=== PATIENT | male | born 1965 | race Caucasian/White ===

== ENCOUNTER 2021-02-21 17:10 | Emergency (ER) | payer BC, SELFPAY ==
[2021-02-21 17:21] VITALS: BP 149/105; PULSE 84; RESP 16; TEMP 36.6; O2SAT 99
--- NOTE | 2021-02-21 17:21 | ED.SKABFB ---
HPI - Skin/Abscess/Foreign Bdy General Chief complaint: Skin/Abscess/Foreign Body Stated complaint: pos tick bite Time Seen by Provider: 02/21/21 17:22 Source: patient and RN notes reviewed Mode of arrival: ambulatory Limitations: no limitations History of Present Illness HPI narrative: 55-year-old male presents concern for tick bite. He reports on Monday he removed a brownish colored tick from the back of his right leg. He reports since then he has noticed a circular rash with a darker red center. He denies any drainage from the area. Reports he removed all the tick as far as he can tell. He denies any general malaise, fever, body aches. Denies any other rash. MD complaint: insect bite/sting Related Data Home Medications Medication Instructions Recorded Confirmed atorvastatin 02/21/21 Allergies Allergy/AdvReac Type Severity Reaction Status Date / Time No Known Allergies Allergy Unverified 11/13/15 10:01 Review of Systems Review of Systems: Narrative: CONSTITUTIONAL: Denies malaise, chills, sweats, or fever. EYES: Denies visual changes, redness, or discharge. ENT: Denies rhinorrhea, congestion, sinus pain, otalgia or sore throat. CARDIOVASCULAR: Denies chest pain, palpitations, or edema. RESPIRATORY: Denies cough or dyspnea. GASTROINTESTINAL: Denies abdominal pain, nausea, vomiting, diarrhea SKIN: Reports red rash on the back of his right leg MUSCULOSKELETAL: Denies back pain, joint pain, or myalgia. NEUROLOGIC: Denies numbness, weakness, or headache. All systems reviewed & are unremarkable except as noted in HPI and below PMFSH Comments At time of signature, agree with nursing past medical, surgical, social and family history. There is no relevant family history pertinent to the presenting complaint Exam Narrative: Exam Narrative: GENERAL: Well-appearing, well-nourished, and in no acute distress. HEAD: Normocephalic, atraumatic. EYES: PERRLA, conjunctivae clear, and EOMI. ENT: Mucous membranes moist. Oropharynx without edema, erythema or lesions. NECK: Supple. No lymphadenopathy CHEST: Clear to auscultation. No respiratory distress. HEART: Regular rate and rhythm. SKIN: Warm, dry. Erythematous bull's-eye rash noted to the posterior right lower leg approximately 1.5 cm in diameter NEURO: Alert and oriented x3. PSYCH: Normal mood and affect Course Course Emergency Course: Patient is aware of diagnosis, understands and agrees to treatment plan. Anticipatory guidance given. Patient agrees to follow-up as directed and is aware of reasons to seek care at the emergency department. Portions of this record may have been created with voice recognition software Vital Signs Vital signs: Vital Signs Temperature 97.9 F 02/21/21 17:21 Pulse Rate 84 02/21/21 17:21 Respiratory Rate 16 02/21/21 17:21 Blood Pressure 149/105 H 02/21/21 17:21 Pulse Oximetry 99 02/21/21 17:21 Temperature 97.9 F 02/21/21 17:21 Pulse Rate 84 02/21/21 17:21 Respiratory Rate 16 02/21/21 17:21 Blood Pressure 149/105 H 02/21/21 17:21 Pulse Oximetry 99 02/21/21 17:21 Reviewed. MDM - Skin/Abscess/Foreign Bdy MDM Narrative Medical decision making narrative: Exam findings show no acute concerns or changes; patient is non-toxic appearing and is in no distress. Patient is appropriate for outpatient treatment and follow-up. Differential Diagnosis Differential diagnosis: Likely abscess of skin or subcutaneous tissue, cellulitis, insect bites and other (Lyme disease, recommend spotted fever) Critical Care Time Critical Care Time Critical Care Time: No Discharge Plan Discharge Clinical Impression: Tick bite Qualifiers: Encounter type: initial encounter Qualified Code(s): W57.XXXA - Bitten or stung by nonvenomous insect and other nonvenomous arthropods, initial encounter Patient Disposition: Home, Self-Care Condition: Stable Instructions: Antibiotic Form, Tick Bite (ED) Additional Instruction
== END 2021-02-21 17:35 | disposition home or self-care (01) ==
PROVIDERS: Emergency Provider Nurse Practitioner; PCP Internal Medicine
DX: S80.861A Insect bite (nonvenomous), right lower leg, initial encounter (principal); W57.XXXA Bitten or stung by nonvenomous insect and other nonvenomous arthropods, initial encounter; E78.00 Pure hypercholesterolemia, unspecified
CPT/HCPCS: 99213; G0463

== ENCOUNTER 2021-04-23 02:29 | Day surgery (SDC) | payer BC, SELFPAY ==
[2021-04-19 12:56] VITALS: BMI 24.3
[2021-04-23 06:53] VITALS: BP 126/83; PULSE 81; RESP 16; TEMP 35.6; O2SAT 98; BMI 21.2
--- NOTE | 2021-04-23 07:11 | PM.HPGS ---
History of Present Illness History of Present Illness Consent: Risks, benefits, and alternatives have been discussed and questions answered. Patient agrees to proceed with procedure. Chief complaint: family hx of colon polyps, neoplasm screening Narrative: Gordo Johnson IV is a 56 year old male Here for colon cancer screening. He had a polyp removed 5 years ago. Both of his grandfathers had colon cancer. Both his parents have had polyps. Review of Systems Review of Systems: All systems reviewed & are unremarkable except as noted in HPI and below PMFSH Social History Social History Smoking status: Never smoker Alcohol intake: current Drinks per week: 14 Alcohol use details: WINE Substance use: never Substance use type: does not use Living arrangements: with family Spiritual care concerns: No Meds Home Medications and Allergies Home Medications Medication Instructions Recorded Confirmed Type atorvastatin 10 mg PO HS 02/21/21 04/23/21 History fexofenadine [Marlin Allergy] 180 mg PO DAILY PRN 04/19/21 04/19/21 History Allergies Allergy/AdvReac Type Severity Reaction Status Date / Time No Known Allergies Allergy Unverified 04/23/21 06:51 Vital Signs Vital Signs - 24 hr 04/23/21 06:53 Temperature 35.6 C L Pulse Rate 81 Respiratory Rate 16 Blood Pressure 126/83 Pulse Oximetry 98 Exam Resp: Auscultation: clear to auscultation bilaterally Cardio: Rate: regular rate Rhythm: regular rhythm GI: GI Palp: Yes Soft to palpation and No Tenderness to palpation present (GI) Assessment and Plan Assessment and plan (1) Colon cancer screening: Code(s): Z12.11 - Encounter for screening for malignant neoplasm of colon Status: Acute Assessment and Plan: Colonoscopy with possible biopsy or polypectomy or cautery or injection of substances.
[2021-04-23] MEDS: LACTATED RINGERS 1,000 ML 150 ML IV CONT (07:13)
--- NOTE | 2021-04-23 07:47 | P.PNAN_ITS ---
Anes - Initial Pre Proc Eval Procedure: Operation Date: 04/23/21 08:00 Proposed Procedures p Screening Colonoscopy - Oscar Barrow MD Date/Time: 04/23/21 07:47 Surgeon: Oscar Barrow MD Pre Op Diagnosis: family hx of colon polyps, neoplasm screening Patient Data Age: 56 Gender: M Height: 1.78 m Weight: 67 kg Last Vital Signs Temp 96.0 F L 04/23/21 06:53 Pulse 81 04/23/21 06:53 Resp 16 04/23/21 06:53 BP 126/83 04/23/21 06:53 Pulse Ox 98 04/23/21 06:53 Allergies Allergy/AdvReac Type Severity Reaction Status Date / Time No Known Allergies Allergy Unverified 04/23/21 06:51 Home Medications Medication Instructions Recorded Confirmed Type atorvastatin 10 mg PO HS 02/21/21 04/23/21 History fexofenadine [Marlin Allergy] 180 mg PO DAILY PRN 04/19/21 04/19/21 History Patient hx anesthesia problems: none Family hx anesthesia problems: none [facility], [facility] Past Medical History Medical History (Updated 04/23/21 @ 07:45 by Tigre Case MD) Hyperlipidemia Social History Social History Smoking status: Never smoker Alcohol intake: current Drinks per week: 14 Alcohol use details: WINE Substance use: never Substance use type: does not use Living arrangements: with family Spiritual care concerns: No Anes - Eval Final PreProcedure Day of Procedure 04/23/21 07:47 Patient weight: normal Heart: regular rate and rhythm Lungs: clear to auscultation Airway: Mallampati scale class II Neurological: alert and oriented Last oral intake: >/= 8 hours ASA classification: II Emergent: no Anesthetic plan: proceed Anesthesia type and monitoring: general GIVS and standard monitoring Informed Consent: The patient's anesthetic plan and its attendant risks and benefits were discussed with the patient/family/POA. Questions were solicited and answers provided to the satisfaction of the patient/family/POA.
[2021-04-23 08:19] VITALS: BP 105/63; PULSE 69; RESP 15; O2SAT 96
[2021-04-23 08:29] VITALS: BP 91/64; PULSE 76; RESP 35; O2SAT 98
[2021-04-23 08:39] VITALS: BP 115/77; PULSE 64; RESP 15; O2SAT 99
== END 2021-04-23 08:57 | disposition home or self-care (01) ==
PROVIDERS: PCP Internal Medicine; Visit Provider Internal Medicine Gastroenterology
PROC: 0DJD8ZZ Inspection of Lower Intestinal Tract, Via Natural or Artificial Opening Endoscopic (ICD-10-PCS; CPT 45378; principal; 2021-04-23 08:00)
DX: Z12.11 Encounter for screening for malignant neoplasm of colon (principal); D12.8 Benign neoplasm of rectum; Z83.71 Family history of colonic polyps; Z80.0 Family history of malignant neoplasm of digestive organs
CPT/HCPCS: 45385; 45381; 88305; J2704; J7120

== ENCOUNTER 2024-07-19 15:56 | Outpatient (CLI) | payer BC, SELFPAY ==
--- NOTE | ~2024-07-19 | XR_ITS ---
CHEST RADIOGRAPH, PA AND LATERAL CLINICAL HISTORY: Cough FOR 1 MONTH . COMPARISON: None available TECHNIQUE: PA and lateral views of the chest. FINDINGS The cardiomediastinal silhouette is unremarkable. The lungs are clear. Visualized osseous structures and soft tissues are unremarkable. IMPRESSION: No focal infiltrate or effusion. Reviewed, dictated and finalized at location A. [employer] LEGAL SECRETARY
== END 2024-07-19 15:57 | disposition home or self-care (01) ==
LOC: ANHIMG 16:02
PROVIDERS: PCP Internal Medicine; Visit Provider Internal Medicine
DX: R05.9 Cough, unspecified (principal)
CPT/HCPCS: 71046

== ENCOUNTER 2024-09-19 00:36 | Day surgery (SDC) | payer BC, SELFPAY ==
[2024-09-10 13:14] VITALS: BMI 25.1
--- NOTE | 2024-09-18 15:36 | WPDANESEPPF ---
Anes - Initial Pre Proc Eval Procedure: Operation Date: 09/19/24 09:30 Proposed Procedures p Colonoscopy - Shawn Herrera MD Date/Time: 09/18/24 15:36 Surgeon: Shawn Herrera MD Pre Op Diagnosis: Hx Colon Polyps Patient Data Age: 59 Gender: M Height: 1.78 m Weight: 79.4 kg Allergies Allergy/AdvReac Type Severity Reaction Status Date / Time No Known Allergies Allergy Verified 09/19/24 08:07 Home Medications ?Medication ?Instructions ?Recorded ?Confirmed ?Type atorvastatin 10 mg tablet 10 mg PO HS 02/21/21 09/19/24 History fexofenadine 180 mg tablet 180 mg PO DAILY PRN Allergy 04/19/21 09/19/24 History (Marlin Allergy) Symptoms fluticasone propionate 50 1 spray intranasal DAILY 10/26/22 09/19/24 History mcg/actuation nasal spray,suspension (Flonase Allergy Relief) omeprazole 10 mg capsule,delayed 10 mg PO DAILY #30 caps 03/25/24 09/19/24 Rx release Patient hx anesthesia problems: none Family hx anesthesia problems: none Results Review: All pre-operative results and documents have been reviewed as part of the pre-operative evaluation. [facility] Past Medical History Medical History (Updated 10/26/22 @ 08:19 by Ryan BeauchampMD) Hyperlipidemia Family History Family History (Updated 10/26/22 @ 07:55 by Kathryn Garcia CMA) Grandparent Cancer Mother Hypertension Social History Social History (Updated 09/19/24 @ 08:16 by Jarad Oh DO) Smoking status: Never smoker Alcohol intake: current Drinks per week: 20 Alcohol use details: WINE 3-4/day Substance use: never Substance use type: does not use Lack of Transportation: No Lack of Food: Never True Current Housing: I Have Housing Concerned About Future Housing: No Difficulty Paying Gas/Electric Bills: No Difficulty Paying for Meds: No Currently Unemployed: No Education: Master's Degree or Higher Difficulty w/ Childcare or Family Care: No Living arrangements: with family Spiritual care concerns: No Anes - Eval Final PreProcedure Day of Procedure 09/18/24 15:36 Patient weight: overweight Heart: regular rate and rhythm Lungs: clear to auscultation Airway: Mallampati scale class II Neurological: alert and oriented Last oral intake: >/= 8 hours ASA classification: III Emergent: no Anesthetic plan: proceed Anesthesia type and monitoring: general GIVS and standard monitoring Results Review: All pre-operative results and documents have been reviewed as part of the pre-operative evaluation. Informed Consent: The patient's anesthetic plan and its attendant risks and benefits were discussed with the patient/family/POA. Questions were solicited and answers provided to the satisfaction of the patient/family/POA.
[2024-09-19] VITALS (8 sets, daily range): BP systolic 111–147; BP diastolic 67–90; PULSE 66–717; RESP 12–25; TEMP 36.1; O2SAT 97–99; BMI 25.0
[2024-09-19] MEDS: LACTATED RINGERS 1,000 ML 150 ML IV CONT (08:15)
--- NOTE | 2024-09-19 08:34 | PM.HPGS ---
History of Present Illness History of Present Illness Consent: Risks, benefits, and alternatives have been discussed and questions answered. Patient agrees to proceed with procedure. Chief complaint: Hx Colon Polyps Narrative: Gordo Johnson IV is a 59 year old male with colon polyp in 2020. Both of his grandfathers had colon cancer. Both his parents have had polyps. Review of Systems Review of Systems: All systems reviewed & are unremarkable except as noted in HPI and below PMFSH Past Medical History Medical History (Updated 09/19/24 @ 08:35 by Shawn Herrera MD) Colon polyp Hyperlipidemia Family History Family History (Updated 10/26/22 @ 07:55 by Kathryn Garcia CMA) Grandparent Cancer Mother Hypertension Social History Social History (Updated 09/19/24 @ 08:16 by Jarad Oh, ) Smoking status: Never smoker Alcohol intake: current Drinks per week: 20 Alcohol use details: WINE 3-4/day Substance use: never Substance use type: does not use Lack of Transportation: No Lack of Food: Never True Current Housing: I Have Housing Concerned About Future Housing: No Difficulty Paying Gas/Electric Bills: No Difficulty Paying for Meds: No Currently Unemployed: No Education: Master's Degree or Higher Difficulty w/ Childcare or Family Care: No Living arrangements: with family Spiritual care concerns: No Meds Home Medications and Allergies Home Medications ?Medication ?Instructions ?Recorded ?Confirmed ?Type atorvastatin 10 mg tablet 10 mg PO HS 02/21/21 09/19/24 History fexofenadine 180 mg tablet 180 mg PO DAILY PRN Allergy 04/19/21 09/19/24 History (Marlin Allergy) Symptoms fluticasone propionate 50 1 spray intranasal DAILY 10/26/22 09/19/24 History mcg/actuation nasal spray,suspension (Flonase Allergy Relief) omeprazole 10 mg capsule,delayed 10 mg PO DAILY #30 caps 03/25/24 09/19/24 Rx release Allergies Allergy/AdvReac Type Severity Reaction Status Date / Time No Known Allergies Allergy Verified 09/19/24 08:07 Vital Signs Vital Signs - 24 hr 09/19/24 08:09 Temperature 97 F L Pulse Rate 94 Respiratory Rate 18 Blood Pressure 147/86 H Pulse Oximetry 99 Oxygen Delivery Room Air Exam Const: General: comfortable and no acute distress HENMT: Face/Nose/Sinus: Normal nares present Eyes: General: appearance normal, both eyes and all related structures Neck: Neck: no JVD Resp: Auscultation: clear to auscultation bilaterally Cardio: Rate: regular rate Rhythm: regular rhythm GI: Inspection: non-distended GI Palp: Yes Soft to palpation Skin: General skin exam: normal color Neuro: General: gait normal Speech: normal speech Extrem: General: normal to inspection Psych: Mental Status: mental status grossly normal Assessment and Plan Assessment and plan (1) Colon polyp: Code(s): K63.5 - Polyp of colon Status: Acute Assessment and Plan: colonoscopy
--- NOTE | 2024-09-19 09:22 | ECG_ITS ---
Test Date: 2024-09-19 09:27:54 Measurements Intervals [place] Rate: 76 P: 44 GA: 166 QRS: -15 QRSD: 162 T: 112 QT: 457 QTc: 517 Interpretive Statements SINUS RHYTHM LEFT BUNDLE BRANCH BLOCK ABNORMAL ECG No previous ECG available for comparison Electronically Signed On 09-19-2024 10:14:42 [employer] SS[employer] DEVELOPER by Meng Dempsey D.O.
--- NOTE | 2024-09-19 09:37 | SUR.PHASEII ---
Addendum entered by Lucia Aranda RN 09/19/24 09:44: Pt currently asymptomatic. States he does not have chest pain or shortness of breath. Original Note: 0927 Abnormal waveform on quality assurance monitor body noted. Dr. Oh (anesthesiologist)notified and at bedside. EKG ordered. Awaiting cardiology to read EKG.
--- NOTE | 2024-09-19 10:29 | SUR.PHASEII ---
[address] Dempsey. Results discussed with pt and spouse by Dr. Oh (anesthesiologist) and orders to discharge pt.
--- OUTSIDE RECORDS SUMMARY | 2024-09-20 03:42 | XMS_ITS | Data Portability ---
Author Organization [place] [facility] [employer] [employer] [facility] [address], Main Office Address [address] [place] [address] Care Team Providers Care Fresh Work Inspector Name Role Phone LAURA EDWARDS Primary Care Provider Assessment No assessment recorded. Plan of Treatment Reminders Order Date Submit Date Provider Last Modified By Organization Details Last Modified Time Details Appointments None recorded. Lab PSA, serum or plasma 023 023 [facility] ([facility]3] Outpatient Lab, [address] [place], [address], 3 07:09:22 lipid panel, serum 023 023 [facility] ([facility]3] Outpatient Lab, [address] [place], [address], 3 07:09:18 CMP, serum or plasma 023 023 [facility] ([facility]3] Outpatient Lab, [address] [place], [address], 3 07:09:19 magnesium , serum or plasma 023 023 [facility] ([facility]3] Outpatient Lab, [address] [place], [address], 3 07:09:19 vitamin B12, serum 023 023 [facility] ([facility]3] Outpatient Lab, [address] [place], [address], 3 07:09:21 CBC w/ auto diff 023 023 [facility]3] Outpatient Lab, [address] [place], [address], 3 07:09:20 PSA, serum or plasma 024 [facility]3] Outpatient Lab, [address] [place], [address], 4 15:41:33 lipid panel, serum 024 [facility]3] Outpatient Lab, [address] [place], [address], 4 15:41:28 CMP, serum or plasma 024 [facility] Lab, [address] [place], [address], 4 15:41:30 vitamin B12, serum 024 [facility] Lab, [address] [place], [address], 4 15:41:32 CBC w/ auto diff 024 [facility]3] Outpatient Lab, [address] [place], [address], 4 15:41:31 magnesium , serum or plasma 024 [facility]3] Outpatient Lab, [address] [place], [address], 4 15:41:29 Referral None recorded. Procedures None recorded. Surgeries None recorded. Imaging None recorded. Medication Orders None recorded. Patient TargetsNo targets recorded. Patient Instructions Encounter Date Encounter Id Patient Instructions Last Modified By Organization Details Last Modified Time 01/10/2023 [id number] Follow-up hyperlipidemia -GERD -colon polyp by history. Clinically doing well. Will be due for lipid panel,CMP,PSA as well as a B12 and magnesium level. Follow-up in six months A copy of the colonoscopy before most recently at [facility] Probably from 2020 [email or web address] Not available 01/10/2023 16:29:34 07/11/2023 [id number] risk assessment* Not availabl e 07/11/2023 17:30:53 INFLUENZA VACCIN E TD/TDAP Recommended today, patient declined Ordered Pa tient will get at local pharmacy/health department PNEUMONIA VACCINE Ordered Recommended today, patient declined Patient will get at local pharmacy/health department Recommen ded at age 65 SHINGLES Ordered Recommended today, patient declined Patient will get at local pharmacy/health department PSA Ordered No screening necessary patient is up to date COLORECTAL SCREENING DEPRESSION SCREENING Negative BMI Overweight Appropri ate NUTRITION PHYSICAL ACTIVITY ALCOHOL USE No alcohol use Occasional/Soci al Use TOBACCO USE former smoker LUNG CANCER SCREENING Non Smoker-not indicated SEXUALLY ACTIVE HEPATITIS C SCREENING Not indicated GLUCOSE SCREENING LIPID SCREENING [email or web address] Not available 07/11/2023 16:37:29 Wellness evaluat ion risk assessment stable. Follow-up for hyperlipidemia -GERD -history of colon polyps. Will continue on current Rx recheck back in six months.Standard immunizations of RSV, COVID, influenza and shingles as recommended. Portions of the record may have been created with voice recognition software. Occasional wrong-word or ? bfdby-u-eiri? substitutions may have occurred due to the inherent limitations of voice recognition software. Read the chart carefully and recognize, using context, where substitutions have occurred. [email or web address] Not available 07/11/2023 17:15:40 01/16/2024 [id number] Follow-up GERD, hyperlipidemia, history of colon polyps all clinically stable. Overall is doing well otherwise. Will check blood work consisting of CBC, CMP, lipid and PSA. Will need a colonoscopy later in the year. Next Appointment: 6 Months Approximate Date: 07/14/2024 Portions of the record may have been created with voice recognition software. Occasional wrong-word or ? [id number]-r-[id number]? substitutions may have occurred due to the inherent limitations of voice recognition software. Read the chart carefully and recognize, using context, where substitutions have occurred. [email or web address] Not available 01/16/2024 16:46:14 07/18/2024 [id number] risk assessment* [email or web address] Not availabl e 07/18/2024 16:55:38 INFLUENZA VACCIN E TD/TDAP Recommended today, patient declined Ordered Pa tient will get at local pharmacy/health department PNEUMONIA VACCINE Ordered Recommended today, patient declined Patient will get at local pharmacy/health department Recommen ded at age 65 SHINGLES PSA Ordered No screening necessary patient is up to date COLORECTAL SCREENING DEPRESSION SCREENING Negative BMI Overweight NUTRITION PHYSICAL ACTIVITY ALCOHOL USE No alcohol use Occasional/Soci al Use TOBACCO USE LUNG CANCER SCREENING Non Smoker-not indicated SEXUALLY ACTIVE HEPATITIS C SCREENING Not indicated GLUCOSE SCREENING LIPID SCREENING [email or web address] Not available 07/18/2024 16:38:09 Adult health examination risk assessment stable. Follow-up for GERD, chronic cough and hyperlipidemia all clinically stable. Will hold off on any blood work at this time and we do this on the next visit in six months. Is already scheduled for colonoscopy in the in the near future. Will continue on current Rx follow-up in six months. Additional Orders - Directives - Recommendations 1. Chest x-ray up at [facility] for chronic cough Follow Up: 6 Months Approximate Date: 01/14/2025 Portions of the record may have been created with voice recognition software. Occasional wrong-word or ? [id number]-n-fgme? substitutions may have occurred due to the inherent limitations of voice recognition software. Read the chart carefully and recognize, using context, where substitutions have occurred. Created: Laura Edwards M.D. 07.18.2024 03:55 PM [email or web address] Not available 07/18/2024 16:55:19 Reason for Referral None Reported. Results Created Date Observation Date Name Description Value Unit Range Abnormal Flag Note LastModifiedBy Organization Detail LastModifiedTime 07/18/20 22 07/19/2022 COMPR EHENS ARNALDO METAB OLIC PANEL glucose 97 mg/dL 65-99 normal Fasti ng refer ence inter camelia Not Available [facility] [id number] [place], [place] [address], [address], 07/19/2022 02:57:28 07/18/20 22 07/19/2022 COMPR EHENS ARNALDO METAB OLIC PANEL urea nitrogen (BUN) 14 mg/dL 7-25 normal Not Available [facility] [address] [place], [address], 07/19/2022 02:57:28 07/18/20 22 07/19/2022 COMPR EHENS ARNALDO METAB OLIC PANEL creatinine 0.92 mg/dL 0.70-1 .30 normal Not Available [address] [place], [address], 07/19/2022 02:57:28 07/18/20 22 07/19/2022 COMPR EHENS ARNALDO METAB OLIC PANEL eGFR 97 mL/mi n/1.7 3m2 > or = 60 normal The eGFR is based on the CKD-E PI 2020 equat ion. To calcu late the new eGFR from a previ ous Creat inine or Cysta tin C resul t, go to https ://sharifa w.ilda good.o tyler/pr ofess vladimiral s/ kdoqi /gfr% 5Fcal culat or Not Available [address], [address], 07/19/2022 02:57:28 07/18/20 22 07/19/2022 COMPR EHENS ARNALDO METAB OLIC PANEL BUN/creatini ne ratio not applic able (calc ) 6-22 Not Available [address], [address], 07/19/2022 02:57:28 07/18/20 22 07/19/2022 COMPR EHENS ARNALDO METAB OLIC PANEL sodium 141 mmol/ L 135-14 6 normal Not Available [address], [address], 07/19/2022 02:57:28 07/18/20 22 07/19/2022 COMPR EHENS ARNALDO METAB OLIC PANEL potassium 4.6 mmol/ L 3.5-5. 3 normal Not Available [address], [address], 07/19/2022 02:57:28 07/18/20 22 07/19/2022 COMPR EHENS ANRALDO METAB OLIC PANEL chloride 102 mmol/ L 98-110 normal Not Available [address], [address], 07/19/2022 02:57:28 07/18/20 22 07/19/2022 COMPR EHENS ARNALDO METAB OLIC PANEL carbon dioxide 29 mmol/ L 20-32 normal Not Available [address], [address], 07/19/2022 02:57:28 07/18/20 22 07/19/2022 COMPR EHENS ARNALDO METAB OLIC PANEL calcium 9.6 mg/dL 8.6-10 .3 normal Not Available [address], [address], 07/19/2022 02:57:28 07/18/20 22 07/19/2022 COMPR EHENS ARNALDO METAB OLIC PANEL protein, total 7.5 g/dL 6.1-8. 1 normal Not Available [address], [address], 07/19/2022 02:57:28 07/18/20 22 07/19/2022 COMPR EHENS ARNALDO METAB OLIC PANEL albumin 4.8 g/dL 3.6-5. 1 normal Not Available [address], [address], 07/19/2022 02:57:28 07/18/20 22 07/19/2022 COMPR EHENS ARNALDO METAB OLIC PANEL globulin 2.7 g/dL_ (calc ) 1.9-3. 7 normal Not Available [address], [address], 07/19/2022 02:57:28 07/18/20 22 07/19/2022 COMPR EHENS ARNALDO METAB OLIC PANEL albumin/glob ulin ratio 1.8 (calc ) 1.0-2. 5 normal Not Available [address], [address], 07/19/2022 02:57:28 07/18/20 22 07/19/2022 COMPR EHENS ARNALDO METAB OLIC PANEL bilirubin, total 0.7 mg/dL 0.2-1. 2 normal Not Available [address], [address], 07/19/2022 02:57:28 07/18/20 22 07/19/2022 COMPR EHENS ARNALDO METAB OLIC PANEL alkaline phosphatase 63 U/L 35-144 normal Not Available [address], [address], 07/19/2022 02:57:28 07/18/20 22 07/19/2022 COMPR EHENS ARNALDO METAB OLIC PANEL AST 33 U/L 10-35 normal Not Available [address], [address], 07/19/2022 02:57:28 07/18/20 22 07/19/2022 COMPR EHENS ARNALDO METAB OLIC PANEL ALT 53 U/L 9-46 high Not Available [address], [address], 07/19/2022 02:57:28 07/18/20 22 07/19/2022 LIPID PANEL , STAND MANE cholesterol, total 185 mg/dL <200 normal Not Available [address], [address], 07/19/2022 02:57:28 07/18/20 22 07/19/2022 LIPID PANEL , STAND MANE HDL cholesterol 67 mg/dL > or = 40 normal Not Available [address], [address], 07/19/2022 02:57:28 07/18/2007/19/2022 LIPID PANEL , STAND MANE triglyceride s 89 mg/dL <150 normal Not Available [address], [address], 07/19/2022 02:57:28 07/18/20 22 07/19/2022 LIPID PANEL , STAND MANE LDL-choleste rol 100 mg/dL _(guerda c) high Refer ence range : <100 Omega able range <100 mg/dL for prima ry preve ntion ; <70 mg/dL for patie nts with CHD or diabe tic patie nts with > or = 2 CHD risk facto rs. LDL-C is now calcu lated using the Hue n-Hop kins calcu sosa n, which is a valid ated novel metho d provi ding sophia r accur acy than the Fried kayleen equat ion in the estim ation of LDL-C . Hue simms SS et al. JEFFERY. 2013; 310(1 9): 2061- 2068 (http ://ed ucati onBVG [place]. [employer]/f aq/FA Q164) Not Available [facility] [address] [place], [address], 07/19/2022 02:57:28 07/18/20 22 07/19/2022 LIPID PANEL , STAND MANE chol/HDLC ratio 2.8 (calc ) <5.0 normal Not Available [facility] [address] [place], [address], 07/19/2022 02:57:28 07/18/20 22 07/19/2022 LIPID PANEL , STAND MANE non HDL cholesterol 118 mg/dL _(guerda c) <130 normal For patie nts with diabe amanda plus 1 major ASCVD risk facto r, treat ing to a non-H DL-C goal of <100 mg/dL (LDL- C of <70 mg/dL ) is consi dered a thera peuti c optio n. Not Available [facility] [address] [place], [address], 07/19/2022 02:57:28 09/27/19 23 09/27/2022 SARS- COV-2 RNA(C OVID1 9),RT -PCR sars-cov-2 RNA(covid19) ,RT-PCR negati ve This test has been autho rized by the FDA under an Emerg ency Use Autho rizat ion (EUA) for use by autho rized labor atori es. Negat arnaldo resul ts do not precl ude SARS- CoV-2 and shoul d not be used as the sole basis for treat ment or other patie nt manag ement decis ions. Test resul ts shoul d be corre lated with the clini guerda histo ry, epide miolo gical data, and other data avail able to the clini koby evalu ating the patie nt. Lisandro grey w the Fact Sheet s for healt h care provi ders and patie nts at the [facility] amanda: https ://ww PlayEnable.fda .gov/ media /1363 12/do wnloa d https ://ww w.fda .gov/ media /1363 13/do wnloa d https ://Helidyne.SixIntel .gov/ media /1421 92/do wnloa d https ://Helidyne.fda .gov/ media /1421 91/do wnloa d Jill price y: Real- Time RT-PC R Not Available [facility] (Lab) [address] [place], [address], 09/27/2022 13:37:19 01/13/20 23 01/13/2023 LIPID PANEL , STAND MANE cholesterol, total 183 mg/dL <200 normal Not Available [facility] [address] [address] [place], [address], 01/13/2023 07:09:17 01/13/20 23 01/13/2023 LIPID PANEL , STAND MANE HDL cholesterol 57 mg/dL > or = 40 normal Not Available [facility] [address] [address] [place], [address], 01/13/2023 07:09:17 01/13/20 23 01/13/2023 LIPID PANEL , STAND MANE triglyceride s 105 mg/dL <150 normal Not Available [facility] [address] [address] [place], [address], 01/13/2023 07:09:17 01/13/20 23 01/13/2023 LIPID PANEL , STAND MANE LDL-choleste rol 106 mg/dL _(guerda c) high Refer ence range : <100 Omega able range <100 mg/dL for prima ry preve ntion ; <70 mg/dL for patie nts with CHD or diabe tic patie nts with > or = 2 CHD risk facto rs. LDL-C is now calcu lated using the Hue n-Hop kins calcu sosa n, which is a valid ated novel metho d provi ding sophia r accur acy than the Fried kayleen equat ion in the estim ation of LDL-C . Hue simms SS et al. JEFFERY. 2013; 310(1 9): 2061- 2068 (http ://ed ucati on.Qu Omar Vayusa. com/f aq/FA Q164) Not Available [facility] [address] [address] [place], [address], 01/13/2023 07:09:17 01/13/20 23 01/13/2023 LIPID PANEL , STAND MANE chol/HDLC ratio 3.2 (calc ) <5.0 normal Not Available [facility] [address], [address], 01/13/2023 07:09:17 01/13/2001/13/2023 LIPID PANEL , STAND MANE non HDL cholesterol 126 mg/dL _(guerda c) <130 normal For patie nts with diabe amanda plus 1 major ASCVD risk facto r, treat ing to a non-H DL-C goal of <100 mg/dL (LDL- C of <70 mg/dL ) is consi dered a thera peuti c optio n. Not Available [facility] [address] [address] [place], [address], 01/13/2023 07:09:17 01/13/2001/13/2023 MAGNE SIUM magnesium 2.2 mg/dL 1.5-2. 5 normal Not Available [facility] [address] [address] [place], [address], 01/13/2023 07:09:19 01/13/20 23 01/13/2023 COMPR EHENS ARNALDO METAB OLIC PANEL glucose 103 mg/dL 65-99 high Fasti ng refer ence inter camelia For someo ne witho ut known diabe amanda, a gluco se value betwe en 100 and 125 mg/dL is consi stent with predi abete s and shoul d be confi rmed with a follo w-up test. Not Available [facility] [address], [address], 01/13/2023 07:09:19 01/13/2001/13/2023 COMPR EHENS ARNALDO METAB OLIC PANEL urea nitrogen (BUN) 17 mg/dL 7-25 normal Not Available [address], [address], 01/13/2023 07:09:19 01/13/20 23 01/13/2023 COMPR EHENS ARNALDO METAB OLIC PANEL creatinine 0.91 mg/dL 0.70-1 .30 normal Not Available [facility] [address], [address], 01/13/2023 07:09:19 01/13/20 23 01/13/2023 COMPR EHENS ARNALDO METAB OLIC PANEL eGFR 98 mL/mi n/1.7 3m2 > or = 60 normal The eGFR is based on the CKD-E PI 2020 equat ion. To calcu late the new eGFR from a previ ous Creat inine or Cysta tin C resul t, go to https ://sharifa w.ilda good.o tyler/maciel milner s/ kdoqi /gfr% 5Fcal culat or Not Available [facility] [address] [address] [place], [address], 01/13/2023 07:09:19 01/13/20 23 01/13/2023 COMPR EHENS ARNALDO METAB OLIC PANEL BUN/creatini ne ratio NOT APPLIC ABLE (calc ) 6-22 Not Available [facility] [address] [address], [place], [address], 01/13/2023 07:09:19 01/13/20 23 01/13/2023 COMPR EHENS ARNALDO METAB OLIC PANEL sodium 138 mmol/ L 135-14 6 normal Not Available [address], [address], 01/13/2023 07:09:19 01/13/20 23 01/13/2023 COMPR EHENS ARNALDO METAB OLIC PANEL potassium 4.5 mmol/ L 3.5-5. 3 normal Not Available [address], [address], 01/13/2023 07:09:19 01/13/2001/13/2023 COMPR EHENS ARNALDO METAB OLIC PANEL chloride 102 mmol/ L 98-110 normal Not Available [address], [address], 01/13/2023 07:09:19 01/13/20 23 01/13/2023 COMPR EHENS ARNALDO METAB OLIC PANEL carbon dioxide 29 mmol/ L 20-32 normal Not Available [address], [address], 01/13/2023 07:09:19 01/13/20 23 01/13/2023 COMPR EHENS ARNALDO METAB OLIC PANEL calcium 9.6 mg/dL 8.6-10 .3 normal Not Available [address], [address], 01/13/2023 07:09:19 01/13/2001/13/2023 COMPR EHENS ARNALDO METAB OLIC PANEL protein, total 7.2 g/dL 6.1-8. 1 normal Not Available [address], [address], 01/13/2023 07:09:19 01/13/20 23 01/13/2023 COMPR EHENS ARNALDO METAB OLIC PANEL albumin 4.4 g/dL 3.6-5. 1 normal Not Available [address], [address], 01/13/2023 07:09:19 01/13/20 23 01/13/2023 COMPR EHENS ARNALDO METAB OLIC PANEL globulin 2.8 g/dL_ (calc ) 1.9-3. 7 normal Not Available [address], [address], 01/13/2023 07:09:19 01/13/20 23 01/13/2023 COMPR EHENS ARNALDO METAB OLIC PANEL albumin/glob ulin ratio 1.6 (calc ) 1.0-2. 5 normal Not Available [address], [address], 01/13/2023 07:09:19 01/13/20 23 01/13/2023 COMPR EHENS ARNALDO METAB OLIC PANEL bilirubin, total 0.5 mg/dL 0.2-1. 2 normal Not Available [address], [address], 01/13/2023 07:09:19 01/13/20 23 01/13/2023 COMPR EHENS ARNALDO METAB OLIC PANEL alkaline phosphatase 61 U/L 35-144 normal Not Available [address], [address], 01/13/2023 07:09:19 01/13/20 23 01/13/2023 COMPR EHENS ARNALDO METAB OLIC PANEL AST 26 U/L 10-35 normal Not Available [address], [address], 01/13/2023 07:09:19 01/13/20 23 01/13/2023 COMPR EHENS ARNALDO METAB OLIC PANEL ALT 42 U/L 9-46 normal Not Available [address], [address], 01/13/2023 07:09:19 01/13/20 23 01/13/2023 CBC (INCL UDES DIFF/ PLT) white blood cell count 6.7 thous and/u L 3.8-10 .8 normal Not Available [address], [address], 01/13/2023 07:09:20 01/13/20 23 01/13/2023 CBC (INCL UDES DIFF/ PLT) red blood cell count 4.49 ron on/uL 4.20-5 .80 normal Not Available [address], [address], 01/13/2023 07:09:20 01/13/20 23 01/13/2023 CBC (INCL UDES DIFF/ PLT) hemoglobin 14.5 g/dL 13.2-1 7.1 normal Not Available [address], [address], 01/13/2023 07:09:20 01/13/2001/13/2023 CBC (INCL UDES DIFF/ PLT) hematocrit 42.7 % 38.5-5 0.0 normal Not Available [address], [address], 01/13/2023 07:09:20 01/13/20 23 01/13/2023 CBC (INCL UDES DIFF/ PLT) MCV 95.1 fL 80.0-1 00.0 normal Not Available [address], [address], 01/13/2023 07:09:20 01/13/2001/13/2023 CBC (INCL UDES DIFF/ PLT) MCH 32.3 pg 27.0-3 3.0 normal Not Available [facility] [address], [address], 01/13/2023 07:09:20 01/13/20 23 01/13/2023 CBC (INCL UDES DIFF/ PLT) MCHC 34.0 g/dL 32.0-3 6.0 normal Not Available [address], [address], 01/13/2023 07:09:20 01/13/2001/13/2023 CBC (INCL UDES DIFF/ PLT) RDW 12.5 % 11.0-1 5.0 normal Not Available [address], [address], 01/13/2023 07:09:20 01/13/2001/13/2023 CBC (INCL UDES DIFF/ PLT) platelet count 179 thous and/u L 140-40 0 normal Not Available [address], [address], 01/13/2023 07:09:20 01/13/2001/13/2023 CBC (INCL UDES DIFF/ PLT) MPV 11.8 fL 7.5-12 .5 normal Not Available [address], [address], 01/13/2023 07:09:20 01/13/20 23 01/13/2023 CBC (INCL UDES DIFF/ PLT) absolute neutrophils 4080 cells /uL 1500-7 800 normal Not Available [address], [address], 01/13/2023 07:09:20 01/13/2001/13/2023 CBC (INCL UDES DIFF/ PLT) absolute lymphocytes 1615 cells /uL 850-39 00 normal Not Available [address], [address], 01/13/2023 07:09:20 01/13/20 23 01/13/2023 CBC (INCL UDES DIFF/ PLT) absolute monocytes 590 cells /uL 200-95 0 normal Not Available [facility] [address], [address], 01/13/2023 07:09:20 01/13/20 23 01/13/2023 CBC (INCL UDES DIFF/ PLT) absolute eosinophils 369 cells /uL 15-500 normal Not Available [address], [address], 01/13/2023 07:09:20 01/13/20 23 01/13/2023 CBC (INCL UDES DIFF/ PLT) absolute basophils 47 cells /uL 0-200 normal Not Available [facility] [address], [address], 01/13/2023 07:09:20 01/13/20 23 01/13/2023 CBC (INCL UDES DIFF/ PLT) neutrophils 60.9 % normal Not Available [address], [address], 01/13/2023 07:09:20 01/13/20 23 01/13/2023 CBC (INCL UDES DIFF/ PLT) lymphocytes 24.1 % normal Not Available [address], [address], 01/13/2023 07:09:20 01/13/20 23 01/13/2023 CBC (INCL UDES DIFF/ PLT) monocytes 8.8 % normal Not Available [facility] [address], [address], 01/13/2023 07:09:20 01/13/20 23 01/13/2023 CBC (INCL UDES DIFF/ PLT) eosinophils 5.5 % normal Not Available [facility] [address], [address], 01/13/2023 07:09:20 01/13/20 23 01/13/2023 CBC (INCL UDES DIFF/ PLT) basophils 0.7 % normal Not Available [facility] [address] [address] [place], [address], 01/13/2023 07:09:20 01/13/20 23 01/13/2023 VITAM IN B12 vitamin B12 419 pg/mL 200-11 00 normal Not Available [facility] [address] [address] [place], [address], 01/13/2023 07:09:21 01/13/20 23 01/13/2023 PSA, TOTAL PSA, total 2.38 NG/mL < or = 4.00 normal The total PSA value from this assay syste m is stand ardiz ed again st the WHO stand mane. The test resul t will be appro ximat dawit 20% lower when manfred red to the equim olar- stand ardiz ed total PSA (Agarwal man Coult er). Manfred rison of seria l PSA resul ts shoul d be inter prete d with this fact in mind. This test was perfo rmed using the [employer] chemi lumin escen t metho d. Value s obtai laura from diffe rent assay metho ds canno t be used inter mathias eably . PSA level s, regar dless of value , shoul d not be inter prete d as absol [place] evide nce of the prese nce or absen ce of disea se. Not Available [facility] [address] [address] [address] [place], [address], 01/13/2023 07:09:22 01/18/20 24 01/19/2024 LIPID PANEL , STAND MANE cholesterol, total 191 mg/dL <200 normal Not Available [facility] [address] [address] [place], [address], 01/19/2024 15:41:27 01/18/20 24 01/19/2024 LIPID PANEL , STAND MNAE HDL cholesterol 58 mg/dL > or = 40 normal Not Available [facility] [address] [address] [place], [address], 01/19/2024 15:41:27 01/18/20 24 01/19/2024 LIPID PANEL , STAND MANE triglyceride s 97 mg/dL <150 normal Not Available [address], [address], 01/19/2024 15:41:27 01/18/20 24 01/19/2024 LIPID PANEL , STAND MANE LDL-choleste rol 113 mg/dL _(guerda c) high Refer ence range : <100 Omega able range <100 mg/dL for prima ry preve ntion ; <70 mg/dL for patie nts with CHD or diabe tic patie nts with > or = 2 CHD risk facto rs. LDL-C is now calcu lated using the Hue n-Hop kins calcu sosa n, which is a valid ated novel metho d provi ding sophia r accur acy than the Fried kayleen equat ion in the estim ation of LDL-C . Hue simms SS et al. JEFFERY. 2013; 310(1 9): 2061- 2068 (http ://ed ucati on.Qu estDi Vayusa. com/f aq/FA Q164) Not Available [address], [address], 01/19/2024 15:41:27 01/18/20 24 01/19/2024 LIPID PANEL , STAND MANE chol/HDLC ratio 3.3 (calc ) <5.0 normal Not Available [address], [address], 01/19/2024 15:41:27 01/18/20 24 01/19/2024 LIPID PANEL , STAND MANE non HDL cholesterol 133 mg/dL _(guerda c) <130 high For patie nts with diabe amanda plus 1 major ASCVD risk facto r, treat ing to a non-H DL-C goal of <100 mg/dL (LDL- C of <70 mg/dL ) is consi dered a thera peuti c optio n. Not Available [facility] [address] [place] [address], [address], 01/19/2024 15:41:27 01/18/20 24 01/19/2024 MAGNE SIUM magnesium 2.0 mg/dL 1.5-2. 5 normal Not Available [address], [address], 01/19/2024 15:41:29 01/18/20 24 01/19/2024 COMPR EHENS ARNALDO METAB OLIC PANEL glucose 104 mg/dL 65-99 high Fasti ng refer ence inter camelia For someo ne witho ut known diabe amanda, a gluco se value betwe en 100 and 125 mg/dL is consi stent with predi abete s and shoul d be confi rmed with a follo w-up test. Not Available [address], [address], 01/19/2024 15:41:30 01/18/20 24 01/19/2024 COMPR EHENS ARNALDO METAB OLIC PANEL urea nitrogen (BUN) 17 mg/dL 7-25 normal Not Available [address], [address], 01/19/2024 15:41:30 01/18/20 24 01/19/2024 COMPR EHENS ARNALDO METAB OLIC PANEL creatinine 1.03 mg/dL 0.70-1 .30 normal Not Available [address], [address], 01/19/2024 15:41:30 01/18/20 24 01/19/2024 COMPR EHENS ARNALDO METAB OLIC PANEL eGFR 84 mL/mi n/1.7 3m2 > or = 60 normal Not Available [address], [address], 01/19/2024 15:41:30 01/18/20 24 01/19/2024 COMPR EHENS ARNALDO METAB OLIC PANEL BUN/creatini ne ratio SEE NOTE: (calc ) 6-22 Not Repor mauri: BUN and Creat inine are withi n refer ence range . Not Available [facility] [address] [place], [address], 01/19/2024 15:41:30 01/18/20 24 01/19/2024 COMPR EHENS ARNALDO METAB OLIC PANEL sodium 139 mmol/ L 135-14 6 normal Not Available [facility] [address], [address], 01/19/2024 15:41:30 01/18/20 24 01/19/2024 COMPR EHENS ARNALDO METAB OLIC PANEL potassium 4.5 mmol/ L 3.5-5. 3 normal Not Available [facility] [address] [address] [place], [address], 01/19/2024 15:41:30 01/18/20 24 01/19/2024 COMPR EHENS ARNALDO METAB OLIC PANEL chloride 100 mmol/ L 98-110 normal Not Available [facility] [address], [address], 01/19/2024 15:41:30 01/18/20 24 01/19/2024 COMPR EHENS ARNALDO METAB OLIC PANEL carbon dioxide 32 mmol/ L 20-32 normal Not Available [facility] [address] [address] [place], [address], 01/19/2024 15:41:30 01/18/20 24 01/19/2024 COMPR EHENS ARNALDO METAB OLIC PANEL calcium 9.7 mg/dL 8.6-10 .3 normal Not Available [facility] [address], [address], 01/19/2024 15:41:30 01/18/20 24 01/19/2024 COMPR EHENS ARNALDO METAB OLIC PANEL protein, total 7.6 g/dL 6.1-8. 1 normal Not Available [facility] [address], [address], 01/19/2024 15:41:30 01/18/20 24 01/19/2024 COMPR EHENS ARNALDO METAB OLIC PANEL albumin 4.6 g/dL 3.6-5. 1 normal Not Available [address], [address], 01/19/2024 15:41:30 01/18/20 24 01/19/2024 COMPR EHENS ARNALDO METAB OLIC PANEL globulin 3.0 g/dL_ (calc ) 1.9-3. 7 normal Not Available [address], [address], 01/19/2024 15:41:30 01/18/20 24 01/19/2024 COMPR EHENS ARNALDO METAB OLIC PANEL albumin/glob ulin ratio 1.5 (calc ) 1.0-2. 5 normal Not Available [address], [address], 01/19/2024 15:41:30 01/18/20 24 01/19/2024 COMPR EHENS ARNALDO METAB OLIC PANEL bilirubin, total 0.8 mg/dL 0.2-1. 2 normal Not Available [address], [address], 01/19/2024 15:41:30 01/18/20 24 01/19/2024 COMPR EHENS ARNALDO METAB OLIC PANEL alkaline phosphatase 61 U/L 35-144 normal Not Available [address], [address], 01/19/2024 15:41:30 01/18/20 24 01/19/2024 COMPR EHENS ARNALDO METAB OLIC PANEL AST 35 U/L 10-35 normal Not Available [address], [address], 01/19/2024 15:41:30 01/18/20 24 01/19/2024 COMPR EHENS ARNALDO METAB OLIC PANEL ALT 64 U/L 9-46 high Not Available [address], [address], 01/19/2024 15:41:30 01/18/20 24 01/19/2024 CBC (INCL UDES DIFF/ PLT) white blood cell count 6.2 thous and/u L 3.8-10 .8 normal Not Available [address], [address], 01/19/2024 15:41:31 01/18/20 24 01/19/2024 CBC (INCL UDES DIFF/ PLT) red blood cell count 4.63 ron on/uL 4.20-5 .80 normal Not Available [address], [address], 01/19/2024 15:41:31 01/18/20 24 01/19/2024 CBC (INCL UDES DIFF/ PLT) hemoglobin 14.7 g/dL 13.2-1 7.1 normal Not Available [address], [address], 01/19/2024 15:41:31 01/18/20 24 01/19/2024 CBC (INCL UDES DIFF/ PLT) hematocrit 45.6 % 38.5-5 0.0 normal Not Available [address], [address], 01/19/2024 15:41:31 01/18/20 24 01/19/2024 CBC (INCL UDES DIFF/ PLT) MCV 98.5 fL 80.0-1 00.0 normal Not Available [facility] [address], [address], 01/19/2024 15:41:31 01/18/20 24 01/19/2024 CBC (INCL UDES DIFF/ PLT) MCH 31.7 pg 27.0-3 3.0 normal Not Available [facility] - [address], [address], 01/19/2024 15:41:31 01/18/20 24 01/19/2024 CBC (INCL UDES DIFF/ PLT) MCHC 32.2 g/dL 32.0-3 6.0 normal Not Available [facility] [address], [address], 01/19/2024 15:41:31 01/18/20 24 01/19/2024 CBC (INCL UDES DIFF/ PLT) RDW 12.5 % 11.0-1 5.0 normal Not Available [facility] [address], [address], 01/19/2024 15:41:31 01/18/20 24 01/19/2024 CBC (INCL UDES DIFF/ PLT) platelet count 171 thous and/u L 140-40 0 normal Not Available [address], [address], 01/19/2024 15:41:31 01/18/20 24 01/19/2024 CBC (INCL UDES DIFF/ PLT) MPV 11.5 fL 7.5-12 .5 normal Not Available [address], [address], 01/19/2024 15:41:31 01/18/20 24 01/19/2024 CBC (INCL UDES DIFF/ PLT) absolute neutrophils 3956 cells /uL 1500-7 800 normal Not Available [facility] [address], [address], 01/19/2024 15:41:31 01/18/20 24 01/19/2024 CBC (INCL UDES DIFF/ PLT) absolute lymphocytes 1376 cells /uL 850-39 00 normal Not Available [facility] [address], [address], 01/19/2024 15:41:31 01/18/20 24 01/19/2024 CBC (INCL UDES DIFF/ PLT) absolute monocytes 477 cells /uL 200-95 0 normal Not Available [facility] [address], [address], 01/19/2024 15:41:31 01/18/20 24 01/19/2024 CBC (INCL UDES DIFF/ PLT) absolute eosinophils 360 cells /uL 15-500 normal Not Available [facility] [address], [address], 01/19/2024 15:41:31 01/18/20 24 01/19/2024 CBC (INCL UDES DIFF/ PLT) absolute basophils 31 cells /uL 0-200 normal Not Available [facility] [address], [address], 01/19/2024 15:41:31 01/18/20 24 01/19/2024 CBC (INCL UDES DIFF/ PLT) neutrophils 63.8 % normal Not Available [facility] [address], [address], 01/19/2024 15:41:31 01/18/20 24 01/19/2024 CBC (INCL UDES DIFF/ PLT) lymphocytes 22.2 % normal Not Available [facility] [address], [address], 01/19/2024 15:41:31 01/18/20 24 01/19/2024 CBC (INCL UDES DIFF/ PLT) monocytes 7.7 % normal Not Available [facility] [address], [address], 01/19/2024 15:41:31 01/18/20 24 01/19/2024 CBC (INCL UDES DIFF/ PLT) eosinophils 5.8 % normal Not Available [facility] [address], [address], 01/19/2024 15:41:31 01/18/20 24 01/19/2024 CBC (INCL UDES DIFF/ PLT) basophils 0.5 % normal Not Available [facility] [address] [place], [address], 01/19/2024 15:41:31 01/18/20 24 01/19/2024 VITAM IN B12 vitamin B12 524 pg/mL 200-11 00 normal Not Available [facility] [address] [place], [address], 01/19/2024 15:41:32 01/18/20 24 01/19/2024 PSA, TOTAL PSA, total 2.83 NG/mL < or = 4.00 normal The total PSA value from this assay syste m is stand ardiz ed again st the WHO stand mane. The test resul t will be appro ximat dawit 20% lower when manfred red to the equim olar- stand ardiz ed total PSA (Agarwal man Coult er). Manfred rison of seria l PSA resul ts shoul d be inter prete d with this fact in mind. This test was perfo rmed using the [employer] lumin escen t metho d. Value s obtai laura from diffe rent assay metho ds canno t be used inter mathias eably . PSA level s, regar dless of value , shoul d not be inter prete d as absol [place] evide nce of the prese nce or absen ce of disea se. Not Available [facility] [address] [place], [address], 01/19/2024 15:41:33 07/19/20 24 07/19/2024 XR, chest , 2 view No observ ation record ed. [address], [place], [address], 07/19/2024 17:34:22 Result Notes None recorded. Problems Name Problem SNOMED Code Status Onset Date Resolution Date Notes Provider Name and Address Organization Details Recorded Time Acute bronchitis 77367372 Active 2021 Not Available [facility] 3 16:40:26 Hypercholeste rolemia 72839173 Active Not Available [facility] 3 16:40:26 Cellulitis of finger 76633462 Active Not Available [facility] 3 16:40:26 Cough 29217384 Active 2022 Not Available [facility] 3 16:40:26 Chronic cough 10573176 Active 2021 Not Available [facility] 3 16:40:26 Polyp of colon 05922523 Active 2022 Laura Edwards MD [address], [place], [address] , [employer] [facility] 3 16:26:13 Gastroesophag eal reflux disease 811444459 Active 2022 Laura Edwards MD [address], [place], [address] , [employer] [facility] 3 16:29:03 Disorder of prostate 76737812 Active 2023 Laura Edwards MD [address], [place], [address] , [employer] [facility] 4 16:46:05 Problem Notes None recorded. Procedures Surgical History None recorded. Imaging Results Imaging Date Name Status LastModified by Organiz ation Details LastModified Time 07/19/2024 XR, chest, 2 view completed [place] [address], [place], [address], 07/19/2024 17:34:22 Procedure Notes None recorded. Medical Equipment None Reported. Medications Name Sig Start Date Stop Date Status Note LastModified by Organization Details LastModified Time amoxicillin 500 mg capsule Take 1 capsule 3 times a day by oral route for 10 days. 05/10 completed Not Available Not Available Not Available budesonide 32 mcg/actuati on nasal spray as needed 07/10 completed Not Available Not Available Not Available atorvastati n 20 mg tablet TAKE 1 TABLET DAILY active Not Available Not Available No t Available atorvastati n 10 mg tablet TAKE 1 TABLET BY MOUTH DAILY 05/23 /2022 completed Not Available Not Available Not Available azithromyci n 250 mg tablet TAKE 2 TABLETS BY MOUTH ON DAY 1, AND THEN TAKE 1 TABLET BY MOUTH ONCE A DAY ON DAY 2 THROUGH DAY 5 07/18 completed Not Available Not Available Not Available benzonatate 200 mg capsule TAKE 1 CAPSULE BY MOUTH THREE TIMES DAILY 07/18 completed Not Available Not Available Not Available Claritin 10 mg tablet Take 1 tablet every day by oral route. 07/12 completed Not Available Not Available Not Available Keflex 500 mg capsule Take 1 capsule 4 times a day by oral route. active Not Available Not Available No t Available doxycycline monohydrate 100 mg tablet 07/20 completed Not Available Not Available Not Available omeprazole 10 mg capsule,del ayed release TAKE 1 CAPSULE BY MOUTH ONCE DAILY active Not Available Not Available No t Available cefdinir 300 mg capsule Take 1 capsule every 12 hours by oral route. active Not Available Not Available No t Available Flonase 2013 active Not Available Not Available Not Avai lable Marlin All[facility] 180 mg tablet Take 1 tablet every day by oral route. 2021 active Not Available Not Available Not Avai lable Flonase Allergy Relief 50 mcg/actuati on nasal spray,suspe nsion SPRAY 1 - 2 SPRAYS (50 - ICO MOO) IN EACH NOSTRIL BY INTRANASA L ROUTEONCE DAILY NEEDED active Not Available Not Available No t Available Vitals Date Recorded Body mass index (BMI) Body height Oxygen saturation Oxygen saturation in Arterial blood by Pulse oximetry Heart rate Body temperature Body weight Systolic blood pressure Diastolic blood pressure Provider Name and Address Organization Details Last Updated DateTime 2 25.3 kg/m2 177.8 cm 98 % 98 % 71 /min 97 [degF] 69079.2 6 g 112 mm[Hg] 64 mm[Hg] Not Available [facility] 3 16:39:55 Date Recorded Body height Body mass index (BMI) Body weight Heart rate Body temperature Oxygen saturation Oxygen saturation in Arterial blood by Pulse oximetry Systolic blood pressure Diastolic blood pressure Provider Name and Address Organization Details Last Updated DateTime 3 177.8 cm 25.7 kg/m2 26749.0 3 g 94 /min 97 [degF] 97 % 97 % 120 mm[Hg] 62 mm[Hg] Bambi Tobar [facility] [employer] [facility] 3 16:10:50 Date Recorded Body height Body mass index (BMI) Body weight Heart rate Body temperature Oxygen saturation Oxygen saturation in Arterial blood by Pulse oximetry Systolic blood pressure Diastolic blood pressure Provider Name and Address Organization Details Last Updated DateTime 3 177.8 cm 26.1 kg/m2 89177.8 1 g 70 /min 97 [degF] 96 % 96 % 118 mm[Hg] 72 mm[Hg] Bambi Tobar [facility] [employer] [facility] 3 16:19:43 Date Recorded Body height Body mass index (BMI) Body weight Heart rate Body temperature Oxygen saturation Oxygen saturation in Arterial blood by Pulse oximetry Systolic blood pressure Diastolic blood pressure Provider Name and Address Organization Details Last Updated DateTime 4 177.8 cm 26.1 kg/m2 06978.8 1 g 83 /min 97.5 [degF] 96 % 96 % 130 mm[Hg] 82 mm[Hg] Rhonda Russell Myrtle [facility] [employer] [facility] 4 16:33:36 Date Recorded Body height Body mass index (BMI) Body weight Heart rate Body temperature Oxygen saturation Oxygen saturation in Arterial blood by Pulse oximetry Systolic blood pressure Diastolic blood pressure Provider Name and Address Organization Details Last Updated DateTime 4 177.8 cm 26 kg/m2 20314.2 2 g 73 /min 97 [degF] 99 % 99 % 120 mm[Hg] 80 mm[Hg] Rhonda Russell Myrtle [facility] [employer] [facility] 4 16:33:38 Social History Question Answer Notes LastModified by Organizat ion Details LastModified Time In The 14 Days Before Symptom Onset, Have You Had Close Contact With A Laboratory-confirme d COVID-19 While That Case Was Ill? No [id number] Information not available 10/26/2022 In The 14 Days Before Symptom Onset, Have You Had Close Contact With A Person Who Is Under Investigation For COVID-19 While That Person Was Ill? No [id number] Information not available 10/26/2022 Have You Recently Traveled Abroad? No [id number] Information not available 10/26/2022 Sex: Unknown Functional Status None recorded. Mental Status None recorded. Family History Nothing Reported Notes:Mother 72 HTN good hea lth Father 73 with Type II DM, Cholesterol and HTN and some skin cancers Two brothers both living and in good health Medical History Condition Response NERVE DISEASE N BLINDNESS N RHEUMATIC FEVER N KIDNEY STONES N BLADDER PROBLEMS N MRSA N OTHER # 1 N POLIO N LUNG DISEASE/DISORDER N RADIATION / CHEMOTHERAPY N COPD N Other # 2 N BLOOD DISEASES N EAR OR HEARING PROBLEMS N MUMPS N BOWEL PROBLEMS N DEPRESSION (INCLUDING POST ) N STROKE/TIA N ULCERS N BENIGN PROSTATIC HYPERPLASIA N MEASLES N MYOCARDIAL INFARCTION N OBESITY N GERD/NAUSEA N ANEURYSM N URINARY/BLADDER/KIDNEY PROBLEMS N CORONARY ARTERY DISEASE (CAD) N ADDICTION CONCERNS N Impotence N ENDOMETRIOSIS N USE OF BLOOD THINNERS N SKIN PROBLEMS N GASTROINTESTINAL DISORDER N PERIPHERAL VASCULAR DISEASE N MUSCLE,JOINT OR BONE PROBLEMS N GASTROINTESTINAL BLEEDING N BLOOD CLOTS N ASTHMA N CATARACTS N ERECTILE DYSFUNCTION N VARICOSITIES N GI PROBLEMS N Low Testosterone N INFERTILITY N AIDS/HIV N CHEMOTHERAPY / RADIATION N LIVER DISEASE N MALE HYPOGONADISM N HYPERTENSION N Deficiency N TOURETTE'S N ANXIETY DISORDER N BLOOD TRANSFUSION N ANEMIA/BLOOD DISORDER N CHRONIC EAR INFECTIONS N BRONCHITIS N TUBERCULOSIS N GLAUCOMA N FOOT PROBLEM N DIVERTICULITIS N SLEEP APNEA N CHICKENPOX N INFECTIOUS DISEASE N PROSTATE N HEART ARRHYTHMIA N INSOMNIA N HIGH CHOLESTEROL / HYPERLIPIDEMIA Y EYE PROBLEMS N HYPERTHYROIDISM N EDEMA N CHRONIC PAIN SYNDROME N HYPOTHYROIDISM N CONSTIPATION N CAROTID BLOCKAGE N BACK / NECK PROBLEMS N HAVE YOU BEEN HOSPITALIZED OR SEEN IN [facility] IN THE PAST YEAR ? N ATHEROSCLEROSIS N BREAST PROBLEMS N DIALYSIS N ECZEMA N OSTEOPOROSIS N ARTHRITIS N NO SIGNIFICANT PAST MEDICAL HISTORY N APPENDICITIS N DIABETES, TYPE N BAD TEETH N ENT N HEARTBURN / REFLUX N AUTISM SPECTRUM DISORDER (ASD) N HEPATITIS / LIVER DISEASE N GOUT N SLEEP DISORDER N ALZHEIMER'S DISEASE N Brain Problems N DEMENTIA N HERPES N SEIZURES/EPILEPSY N HEADACHES/MIGRAINES N VASCULAR DISEASE N PACEMAKER N Blood Disorder N DIZZINESS N HEART DISEASE/HEART PROBLEMS N KIDNEY DISEASE N MULTIPLE SCLEROSIS N CANCER: SPECIFY N CARDIAC ARRHYTHMIA N ATRIAL FIBRILLATION N Gall Stones N PULMONARY EMBOLISM N AUTOIMMUNE DISEASE N Immunizations Vaccine Type Date Status Note Provider Nam e and Address Organization Details Recorded Time zoster recombinant 3 completed YANDEL Davila, [place] - [facility] 03/14/2023 09:41:47 influenza, unspecified formulation 3 completed Bambi silva, [facility] 07/11/2023 16:20:08 SARS-COV-2 (COVID-19) vaccine, UNSPECIFIED 3 completed Bambi Jewellreynaa null, [facility] 07/11/2023 16:20:30 zoster recombinant 3 completed Bambi Dhaliwala null, [facility] 08/29/2023 00:42:34 Respiratory syncytial virus (RSV) vaccine, unspecified 3 completed Bambi Jewellreynaa null, [facility] 10/10/2023 14:45:20 COVID-19, mRNA, LNP-S, PF, kayla-sucrose, 30 mcg/0.3 mL 4 completed ETN Rivas null, [facility] 06/11/2024 14:27:00 Influenza, MDCK, trivalent, PF 4 completed TEN Rivas, [facility] 06/11/2024 15:15:07 Influenza, split virus, quadrivalent, preservative 1 completed Not Available [facility] 10/26/2022 16:41:42 SARS-COV-2 (COVID-19) vaccine, UNSPECIFIED 1 completed Not Available [facility] 10/26/2022 16:41:42 SARS-COV-2 (COVID-19) vaccine, UNSPECIFIED 1 completed Not Available [facility] 10/26/2022 16:41:43 Influenza, split virus, quadrivalent, preservative 2 completed Not Available [facility] 10/26/2022 16:41:43 COVID-19, mRNA, LNP-S, PF, 100 mcg/0.5mL dose or 50 mcg/0.25mL dose 2 completed Not Available [facility] 10/26/2022 16:41:43 Tdap 2 completed Not Available [facility] 10/26/2022 16:41:43 Influenza, split virus, quadrivalent, PF 0 completed Not Available [facility] 10/26/2022 16:41:43 Influenza, split virus, quadrivalent, preservative 5 completed Not Available [facility] 10/26/2022 16:41:43 Influenza, split virus, trivalent, preservative 4 completed Not Available [facility] 10/26/2022 16:41:44 Past Encounters Encounter ID Performer Location Encounter Start Date Encounter Closed Date Diagnosis/Indication Diagnosis SNOMED-CT Code Diagnosis ICD10 Code Diagnosis Note [id number] [facility] Internal Med Alexvi lauren [address] [place] [address] y , [place] [address] 01/15/2021 00:00:00 01/15/2021 10:48:19 [id number] [facility] Internal Med Reina aguilar [address] [place] [address] [place] [address] 07/20/2021 00:00:00 07/20/2021 12:55:09 [id number] [facility] Internal Med Reina aguilar [address] [place] [address] [place] [address] 01/11/2022 00:00:00 01/11/2022 16:53:42 [id number] [facility] Internal Med Reina aguilar [facility] [place] [address] 07/12/2022 00:00:00 07/12/2022 16:18:41 [id number] Laura Edwards MD [facility] Internal Med Reina aguilar [address] [place] [address] [place] [address] 01/10/2023 15:54:31 01/10/2023 16:37:15 Hypercholesterolemia 91029775 E78.00 Gastroesop hageal reflux disease 752635916 K21.9 Polyp of colon 77637053 K63.5 Disorder of prostate 302 [address] N42.9 [id number] Laura Edwards MD [facility] Internal Med Reina aguilar [address] [place] [address] [place] [address] 07/11/2023 16:10:41 07/11/2023 17:26:38 Adult health examination 287952451 Z00.00 Depression screening 171 616430 Z13.31 Hypercholesterolemia 136 98278 E78.00 Gastroesop hageal reflux disease 600164488 K21.9 Polyp of colon 52796523 K63.5 [id number] Laura Edwards MD [facility] Internal Med [facility] [address] [facility], [place] [address] 01/16/2024 16:28:52 01/16/2024 16:49:34 Gastroesophageal reflux disease 207788887 K21.9 Hypercholesterolemia 136 00435 E78.00 Polyp of colon 48262564 K63.5 Disorder of prostate 302 [address]8723 N42.9 [id number] Laura Edwards MD [facility] Primary Care [facility] [address] [facility] [address] [place] [address] 07/18/2024 16:24:23 07/18/2024 18:08:58 Adult health examination 416645977 Z00.00 Depression screening 171 833127 Z13.31 Gastroesop hageal reflux disease 215658628 K21.9 Chronic cough 11061872 R 05.3 Hypercholesterolemia 136 53007 E78.00 Health Concerns Section Related Observation LastModified by Organization Detai ls LastModified Time None Recorded Concern Status LastModified by Organization Details LastModified Time None Recorded Advance Directives Directive None Recorded Payers Encounter Date Sequence Insurance Name Policy Number Policy Ha Covered Member ID Ha Member ID Guarantor Name 01/10/2023 1 [place] [id number] [id number] [place] 07/11/2023 1 [place] [id number] [place] [id number] [place] 01/16/2024 1 [place] [id number] [place] [id number] [place] 07/18/2024 1 [place] [id number] [place] [id number] [place] Notes Date Note Type Note Provider Name and Address Organization Details Recorded Time text/html Patient Name: Gordo AlexDate Of Service: Monday ( 01.10.2023 ): 1965 Age: 57 There has been approximately a 3 lb weight gain since 07/12/2022. This represents approximately a 1.7% change in weight. Weight change attributable to lifestyle changes. Vital Signs:Blood Pressure: Sitting Rt. Arm 120/62Pulse: Sitting 94 /min and RegularRespirations: 12Height 70 in or 1.8 mWeight 179 lb or 81.2 kgBMI 25.7Temperature: 97 F or 36.1 CPulse Oximetry: 97 % at rest on no oxygen Chief Complaint: Addressed in HPI Problems or conditions discussed in the HPI were the only ones reviewed during the encounter.Only social and family history addressed in the HPI were reviewed during this encounter. Attendant(s): None Constitutional and Systemic Symptoms: none Medication Reconciliation: from medication list. History of Present Illness #1. Type II Hypercholesterolaemia: Currently taking medication and tolerating well. No interval complaints of any muscle pain or arthralgia. No significant liver changes with medications. Last lipid panel: fair control. Therapy reviewed regarding treatment of cholesterol management and include diet and Lipitor. #2. Hx of esophageal reflux currently stable. Hx of Complications: none The severity, duration and intensity of symptoms have improved. Frequency: most meals Treatment consists medications taken on intermittent basis. Current therapy includes Omeprazole. There has been no nausea, eructation, vomiting, hematemesis, dysphagia, velopharyngeal insufficiency and odynophagia. No change in he frequency or intensity of symptoms. Has had no melena. Has had no hematemesis. Discuss the possibility of trying to reduce the frequency of the use of any PPI inhibitors or H2 antagonist to see if symptoms can be controlled with last intensive therapy #3. Colon polyps: Hx of colon polyps. No interval complaints of any bleeding or change in bowel habits. Last colonoscopy was one year ago.Medication List Reviewed and Reconciled 01/10/2023Omeprazole 10 MG CAPSULE, DELAYED RELEASE One DailyLipitor 20 MG (TABLET - ORAL) One DialyFlonase 0.05 MG/SPRAY (SPRAY, METERED - NASAL) One Puff Daily For AllergiesAllegra 180 MG TABLET, COATED Once DailyVaccination and Xhrkxkbxvogi3061-17 Covid Booster Jyhzadq4873-60 Awat7805-96 Qafndvbpd8630-12 Covid Wcxyrla2090-220787-44Fpnf ical HistoryNasal Polyps, Urethral Stricture, Vasectomy, Nasal PolypsPreventative Testing Confirmed by Our Hbzyoyw8207/18/2022 ALBUMIN 4.8 G/DL01/13/2022 PSA 2.33 NG/ML08/12/2017 HAIC 5.1 % OF TOTAL HGB110/25/2014 COLONOSCOPY (5 YEARS) 08/24/2020Social HistoryDoes not smokeDrinks sociallyChemical EngineerFamily HistoryMother 79 HTN good healthFather 80 with Type II DM, Cholesterol and HTN and some skin cancers. Some signs of early dementiaTwo brothers both living and in good health Laura Edwards MD [address] [facility] [facility] [address], [place], [address], [facility] [employer] [facility] 01/10/2023 16:30:08 3 text/html Patient Name: Gordo TongDate Of Service: Monday ( 07.11.2023 ): 1965 Age: 58 There has been approximately a 3 lb weight gain since 01/10/2023. This represents approximately a 1.7% change in weight. Weight change attributable to lifestyle changes. Vital Signs:Blood Pressure: Sitting Rt. Arm 118/72Pulse: Sitting 70 /min and RegularRespiratory Rate: 12Height 70 in or 1.8 mWeight 182 lb or 82.6 kgBMI 26.1Temperature: 97 F or 36.1 CPulse Oximetry: 96 % at rest on no oxygen Chief Complaint: Addressed in HPI Problems or conditions discussed in the HPI were the only ones reviewed during the encounter.Only social and family history addressed in the HPI were reviewed during this encounter. Attendant(s): NoneConstitutional and Systemic Symptoms:none Medication Reconciliation: from medication list. History of Present Illness In for a well patient check up. Last well patient evaluation was approximately one year. No interval complaints of any new major medical problems. No hx of any chest pain, shortness of breath, nausea, vomiting, diarrhea or constitutional symptoms.PSA already performedColonoscopy or Cologuard: not dueImmunizations Up To Date or refuses to takeNo Significant Change In Family HxFall Risk normalDepression Score: 0Hearing normalVisual normalReviewed Smoking and Drug HistoryReviewed Immunization HistoryInstructed on importance of weight on diabetes, heart and other diseases aggravated by obesity.Instructed on importance of weight on diabetes, heart and other diseases aggravated by obesity. #1. Type II Hypercholesterolaemia: Currently taking medication and tolerating well. No interval complaints of any muscle pain or arthralgia. No significant liver changes with medications. Last lipid panel: fair control. Therapy reviewed regarding treatment of cholesterol management and include diet and Lipitor. #2. Hx of esophageal reflux currently stable. Hx of Complications: none The severity, duration and intensity of symptoms have improved. Frequency: most meals Treatment consists medications taken on intermittent basis. Current therapy includes Omeprazole. There has been no nausea, eructation, vomiting, hematemesis, dysphagia, velopharyngeal insufficiency and odynophagia. No change in he frequency or intensity of symptoms. Has had no melena. Has had no hematemesis. Discuss the possibility of trying to reduce the frequency of the use of any PPI inhibitors or H2 antagonist to see if symptoms can be controlled with last intensive therapy #3. Colon polyps: Hx of colon polyps. No interval complaints of any bleeding or change in bowel habits. Last colonoscopy 2020. Is due in 2023.Medication List Reviewed and Reconciled 07/11/2023Omeprazole 10 MG CAPSULE, DELAYED RELEASE One DailyLipitor 20 MG (TABLET - ORAL) One DialyFlonase 0.05 MG/SPRAY (SPRAY, METERED - NASAL) One Puff Daily For AllergiesAllegra 180 MG TABLET, COATED Once DailyVaccination and [id number] Gjrsyigph0323-53 Covid Booster Jdppwmo4413-62 Frsj4684-39 Covid ModernaSurgical HistoryNasal Polyps, Urethral Stricture, Vasectomy, Nasal PolypsPreventative Testing Confirmed by Our Fxuzzes3401/12/2023 ALBUMIN 4.4 G/DL N001/12/2023 PSA 2.38 NG/ML N004/23/2021 COLONOSCOPY ( 3 YEARS ) 412/ HAIC 5.1 % OF TOTAL HGB NSocial HistoryDoes not smokeDrinks sociallyChemical EngineerFamily HistoryMother 79 HTN good healthFather 80 with Type II DM, Cholesterol and HTN and some skin cancers. Some signs of early dementiaTwo brothers both living and in good health TEST RESULT RANGE UNITSLIPID PANEL, STANDARD Date: 3CHOLESTEROL, TOTAL 183 <200 MG/DLHDL CHOLESTEROL 57 > OR = 40 MG/DLTRIGLYCERIDES 105 <150 MG/DLLDL-CHOLESTEROL 106 MG/DL (CALC)PSA, TOTAL Date: 3PSA, TOTAL 2.38 < OR = 4.00 NG/ML Laura Edwards MD [address] [facility] [address], [place], [address], [place] - [facility] 07/11/2023 17:30:56 4 text/html Patient Name: Gordo JohnsonDate Of Service: Monday ( 01.16.2024 ): 1965 Age: 58 Vital Signs:Blood Pressure: Sitting Rt. Arm 130/82Pulse: Sitting 83 /min and RegularRespiratory Rate: 12Height 70 in or 1.8 mWeight 182 lb or 82.6 kgBMI 26.1Temperature: 97.5 F or 36.4 CPulse Oximetry: 96 % at rest on no oxygen Chief Complaint: Addressed in HPI Problems or conditions discussed in the HPI were the only ones reviewed during the encounter.Only social and family history addressed in the HPI were reviewed during this encounter. Attendant(s): NoneConstitutional and Systemic Symptoms:none Medication Reconciliation: from medication list. History of Present Illness #1. Hx of esophageal reflux currently stable. Hx of Complications: none The severity, duration and intensity of symptoms have improved. Frequency: most meals Treatment consists medications taken on intermittent basis. Current therapy includes Omeprazole. There has been no nausea, eructation, vomiting, hematemesis, dysphagia, velopharyngeal insufficiency and odynophagia. No change in he frequency or intensity of symptoms. Has had no melena. Has had no . Discussed use of H2 antagonists and the possibility of trying to reduce the frequency of the use of any PPI inhibitors and try H2 antagonists to see if symptoms can be controlled with lease intensive therapy since a number of complications are associated with chronic prolonged use of PPI inhibitors. #2. Type II Hypercholesterolaemia: Currently taking medication and tolerating well. No interval complaints of any muscle pain or arthralgia. No significant liver changes with medications. Last lipid panel: fair control. Therapy reviewed regarding treatment of cholesterol management and include Lipitor. #3. Colon polyps: Hx of colon polyps. No interval complaints of any bleeding or change in bowel habits. Last colonoscopy was five years ago. Active Medication ListOmeprazole 10 MG CAPSULE, DELAYED RELEASE One DailyLipitor 20 MG (TABLET - ORAL) One DialyFlonase 0.05 MG/SPRAY (SPRAY, METERED - NASAL) One Puff Daily For AllergiesAllegra 180 MG TABLET, COATED Once Daily Vaccination and [id number] Rdc9575-18 Jjkuvcgsb8190-96 Covid Booster Rgiwjta7821-03 Tsoo8389-51 Covid Moderna Surgical Zjdqfcw6083-81 Nasal Tgfpcf7064-25 Urethral Kzkvqygxr2628-25 Yztessmtp1573-10 Nasal Polyps Preventative Hchpiki7101/12/2023 ALBUMIN 4.4 G/DL N001/12/2023 PSA 2.38 NG/ML N004/23/2021 COLONOSCOPY ( 3 YEARS ) 4110/13/2016 HAIC 5.1 % OF TOTAL HGB N Social HistoryDoes not smokeDrinks sociallyChemical Statistics Tutor Family HistoryMother 79 HTN good healthFather 80 with Type II DM, Cholesterol and HTN and some skin cancers. Some signs of early dementiaTwo brothers both living and in good health Laura Edwards MD [address] [place] [address], [facility] [address], [place], [address], [place] - [facility] 01/16/2024 16:48:14 4 text/html Patient Name: Gordo Contreras Of Service: June ( 07.18.2024 ): 1965 Age: 59 Vital Signs:Blood Pressure: Sitting Rt. Arm 120/80Pulse: Sitting 73 /min andRespiratory Rate: 16Height 70 in or 1.8 mWeight 181 lb or 82.1 kgBMI 26.0Temperature: 97 F or 36.1 CPulse Oximetry: 99 % at rest on no oxygen Chief Complaint: Addressed in HPI Problems or conditions discussed in the HPI were the only ones reviewed during the encounter.Only social and family history addressed in the HPI were reviewed during this encounter. Attendant(s): NoneConstitutional and Systemic Symptoms:none Medication Reconciliation: from medication list. History of Present Illness In for a well patient check up. Last well patient evaluation was approximately one year. No interval complaints of any new major medical problems. No hx of any chest pain, shortness of breath, nausea, vomiting, diarrhea or constitutional symptoms.PSA already performedColonoscopy or Cologuard: dueImmunizations Up To Date or refuses to takeNo Significant Change In Family HxFall Risk normalDepression Score: 0Hearing normalVisual normalReviewed Smoking and Drug HistoryReviewed Immunization HistoryInstructed on importance of weight on diabetes, heart and other diseases aggravated by obesity.Instructed on importance of weight on diabetes, heart and other diseases aggravated by obesity. #1. History of chronic cough etiology which obscure did recently have an upper respiratory infection with some involvement of the pulmonary system. At cough congestion which improved quite quickly with medication but still has some residual cough nonproductive but is concerned about it. Is on no specific medication that might be producing this. Will obtain radiographic study of the chest to be on the safe side.: #2. Type II Hypercholesterolaemia: Currently not taking medication. No interval complaints of any muscle pain or arthralgia. No significant liver changes with medications. Last lipid panel: fair control. Therapy reviewed regarding treatment of cholesterol management and include diet and Lipitor. #3. Hx of esophageal reflux currently stable. Hx of Complications: none The severity, duration and intensity of symptoms have improved. Frequency: most meals Treatment consists medications taken on a regular basis. Current therapy includes no medication. There has been no nausea. No change in he frequency or intensity of symptoms. Has had no melena. Has had no . Discussed use of H2 antagonists NA. Active Medication ListOmeprazole 10 MG CAPSULE, DELAYED RELEASE One DailyLipitor 20 MG (TABLET - ORAL) One DialyFlonase 0.05 MG/SPRAY (SPRAY, METERED - NASAL) One Puff Daily For AllergiesAllegra 180 MG TABLET, COATED Once Daily Vaccination and Immunization( ) 2024-05 INFLUENZA( ) 2020-11 COVID MODERNA( ) 2020-11 SHINGRIX( ) 2021-12 TDAP(X) 2023-06 COVID BOOSTER MODERNA( ) 2023-06 RSV Surgical Mxvhgal8399-83 Nasal Ziwswu1082-63 Urethral Glgcsygby4105-04 Byxiaoggk6109-16 Nasal Polyps Preventative Testing( ) 01/18/2024 Albumin 4.6 G/DL N( ) 01/18/2024 PSA 2.83 NG/ML N 01/17/2025(X) 04/23/2021 Colonoscopy ( 3 Years ) 04/23/2024( ) 08/12/2017 HAIC 5.1 % OF TOTAL HGB N Social HistoryDoes not smokeDrinks sociallyChemical Statistics Tutor Family HistoryMother 79 HTN good healthFather 80 with Type II DM, Cholesterol and HTN and some skin cancers. Some signs of early dementiaTwo brothers both living and in good health TEST RESULT RANGE UNITSCBC (INCLUDES DIFF/PLT) Date: 01/18/2024WHITE BLOOD CELL COUNT 6.2 3.8-10.8 THOUSAND/ULHEMOGLOBIN 14.7 13.2-17.1 G/DLHEMATOCRIT 45.6 38.5-50.0 %PLATELET COUNT 171 140-400 THOUSAND/ULCOMPREHENSIVE METABOLIC PANEL Date: 01/18/2024SODIUM 139 135-146 MMOL/LPOTASSIUM 4.5 3.5-5.3 MMOL/LGLUCOSE 104 65-99 MG/DLUREA NITROGEN (BUN) 17 7-25 MG/DLCREATININE 1.03 0.70-1.30 MG/DLEGFR 84 > OR = 60 ML/MIN/1.54I0FZHHKAZRX, TOTAL 0.8 0.2-1.2 MG/DLALKALINE PHOSPHATASE 61 35-144 U/LAST 35 10-35 U/LALT 64 9-46 U/LLIPID PANEL, STANDARD Date: 01/18/2024HOLESTEROL, TOTAL 191 <200 MG/DLHDL CHOLESTEROL 58 > OR = 40 MG/DLTRIGLYCERIDES 97 <150 MG/DLLDL-CHOLESTEROL 113 MG/DL (CALC)PSA, TOTAL Date: 4PSA, TOTAL 2.83 < OR = 4.00 NG/ML Laura Edwards MD [address] [facility], [facility] [address], [place], [address], [place] [facility] 07/18/2024 16:55:41
== END 2024-09-19 10:20 | disposition home or self-care (01) ==
PROVIDERS: PCP Internal Medicine; Referring Provider Student in an Organized Health Care Education/Training Program; Visit Provider Internal Medicine Gastroenterology
PROC: 0DJD8ZZ Inspection of Lower Intestinal Tract, Via Natural or Artificial Opening Endoscopic (ICD-10-PCS; CPT 45378; principal; 2024-09-19 09:30)
DX: Z12.11 Encounter for screening for malignant neoplasm of colon (principal); D12.4 Benign neoplasm of descending colon; K57.30 Diverticulosis of large intestine without perforation or abscess without bleeding; K64.8 Other hemorrhoids
CPT/HCPCS: 45385; 88305; 93005; J2003; J2704; J7120